=== PATIENT | female | born 1935 | race African-American/Black ===

== ENCOUNTER 2016-11-08 11:33 | Emergency (ER) | payer MEDICARE, OTHER ==
[~2016-11-08] VITALS: Ht 162.6 cm; Wt 76.2 kg
--- NOTE | ~2016-11-08 | EKG ---
[place] [address] [facility] [place] [address] ELECTROCARDIOGRAM REPORT Name: LEAHSUSAN Room #: DEP AUGUSTINA Jin#: [id number] Admission: 11/08/16 Attend Phys: Discharge: 11/08/16 Date of : 31 Report #: [id number] THIS REPORT FOR: //name// [facility] ED Test Date: 2016-11-08 Test Time: 12:00:14 Pat Name: SUSAN LYNN Department: Room: Gender: F Conservation Educator: Martir FRAIRE : 1935 Requested By: Yang Romo Order Number: [id number] MD: Manohar Harvey Measurements Intervals [place] Rate: 103 P: 38 CA: 197 QRS: 10 QRSD: 83 T: 81 QT: 366 QTc: 479 Interpretive Statements Sinus tachycardia Ventricular premature complex Left ventricular hypertrophy No previous ECG available for comparison Electronically Signed On 11-09-2016 8:28:02 CDT by Manohar Harvey [email or web address] <ELECTRONICALLY SIGNED> By: Manohar Harvey MD, [facility] 11/09/16 0828 1200 [facility] [place] Manohar Harvey MD, FACC /EPI
[~2016-11-08 11:33] MED LIST: ASPIR 8181 MG PO; CALCIUM 600 +1 EAC1 PO; CENTRUM SILVER1 EAC4 PO; CHLORTHALIDONE25 MG PO; CRESTOR10 MG PO; KLOR-CON 1010 MEQ PO; LEVEMIR SUBQ; NOVOLOG100 UNIT/M SUBQ; OMEPRAZOLE20 M1 PO; OXYCODONE-ACET1 EACH PO; PRINIVIL10 MG PO; TIZANIDINE HCL2 M1 PO; VITAMIN D-32000 UNIT PO; ZETIA10 MG PO; ZOLOFT25 MG PO; [UNRECOGNIZED DRUG - OTHER] TP
[2016-11-08 13:44] LABS: ABSOLUTE NEUTROPHILS 7.9 thou/uL (1.4-8.2); BASOPHILS 1.1 % (0.0-2.0); EOSINOPHILS 0.2 % (0.0-3.0); HEMOGLOBIN 14.6 gm/dL (12.0-15.0); LYMPHOCYTES 13.9 % (24.0-44.0); MCH 33.6 pg (26.0-34.0); MCHC 33.1 g/dL (28.0-37.0); MCV 101.4 fL (80.0-100.0); MONOCYTES 6.4 % (1.0-8.0); PLATELET COUNT 157 thou/uL (150-400); POLYS 78.4 % (36.0-66.0); RBC 4.34 mil/uL (4.20-5.00); RDW 13.8 % (10.5-14.5); WBC 10.1 thou/uL (4.0-11.0)
[2016-11-08 13:45] LABS: MANUAL DIFF NO
[2016-11-08 13:55] LABS: ANION GAP 7 mmol/L (7-16); BUN 18 mg/dL (7-18); CALCIUM 8.6 mg/dL (8.5-10.1); CHLORIDE 99 mmol/L (98-107); CO2 29 mmol/L (21-32); CREATININE 1.4 mg/dL (0.6-1.0); GLUCOSE 407 mg/dL (74-106); INR 1.1; POTASSIUM 4.3 mmol/L (3.5-5.1); PROTIME 10.9 Seconds (9.3-11.4); SODIUM 135 mmol/L (136-145)
[2016-11-08 14:02] LABS: ALBUMIN 3.2 g/dL (3.4-5.0); ALKALINE PHOSPHATASE 75 U/L (46-116); SGOT 13 U/L (15-37); SGPT 25 U/L (30-65); TOTAL BILIRUBIN 0.7 mg/dL (<0.1-1.0); TOTAL PROTEIN 6.9 g/dL (6.4-8.2); TROPONIN-I < 0.04 ng/mL (<0.04-0.07)
[2016-11-08 17:52] VITALS: BP 132/68
== END 2016-11-08 18:16 | disposition home or self-care (01) ==
LOC: ER 11:33
PROVIDERS: Physician Assistant
DX: E11.65 Type 2 diabetes mellitus with hyperglycemia (principal); G89.29 Other chronic pain; Z88.8 Allergy status to other drugs, medicaments and biological substances; Z87.891 Personal history of nicotine dependence

== ENCOUNTER 2016-11-28 11:58 | Emergency (ER) | payer MEDICARE, OTHER ==
[~2016-11-28] VITALS: Ht 162.6 cm; Wt 78.5 kg
[2016-11-28 12:52] LABS: ABSOLUTE NEUTROPHILS 5.5 thou/uL (1.4-8.2); BASOPHILS 0.5 % (0.0-2.0); EOSINOPHILS 1.9 % (0.0-3.0); HEMATOCRIT 38.1 % (37.0-47.0); HEMOGLOBIN 12.7 gm/dL (12.0-15.0); LYMPHOCYTES 18.5 % (24.0-44.0); MCH 33.8 pg (26.0-34.0); MCHC 33.3 g/dL (28.0-37.0); MCV 101.7 fL (80.0-100.0); PLATELET COUNT 152 thou/uL (150-400); POLYS 72.1 % (36.0-66.0); RBC 3.75 mil/uL (4.20-5.00); RDW 14.3 % (10.5-14.5); WBC 7.6 thou/uL (4.0-11.0)
[2016-11-28 12:53] LABS: MANUAL DIFF NO
[2016-11-28] MEDS ORDERED: PREDNISONE 5 MG5 M1 PO (13:34)
[2016-11-28] MEDS ORDERED: FOLIC ACID1 MG PO (13:34)
[2016-11-28] MEDS ORDERED: METHOTREXATE 22.5 MG PO (13:35)
[2016-11-28 13:38] LABS: CALCIUM 8.4 mg/dL (8.5-10.1); POTASSIUM 3.9 mmol/L (3.5-5.1)
[2016-11-28 14:19] VITALS: BP 162/67
== END 2016-11-28 14:27 | disposition home or self-care (01) ==
LOC: ER 11:58
PROVIDERS: Emergency Medicine
DX: G25.2 Other specified forms of tremor (principal); E11.9 Type 2 diabetes mellitus without complications; Z79.4 Long term (current) use of insulin; G89.29 Other chronic pain; Z88.8 Allergy status to other drugs, medicaments and biological substances; F17.210 Nicotine dependence, cigarettes, uncomplicated; F10.99 Alcohol use, unspecified with unspecified alcohol-induced disorder

== ENCOUNTER 2016-12-03 07:51 | Emergency (ER) | payer MEDICARE, OTHER ==
[~2016-12-03] VITALS: Ht 162.6 cm; Wt 77.1 kg
[~2016-12-03 07:51] MED LIST changes: +FOLIC ACID1 MG PO; +METHOTREXATE 22.5 MG PO; +PREDNISONE 5 MG5 M1 PO
[2016-12-03 08:37] LABS: ABSOLUTE NEUTROPHILS 4.9 thou/uL (1.4-8.2); BASOPHILS 0.5 % (0.0-2.0); EOSINOPHILS 2.1 % (0.0-3.0); HEMATOCRIT 41.6 % (37.0-47.0); HEMOGLOBIN 13.8 gm/dL (12.0-15.0); LYMPHOCYTES 20.4 % (24.0-44.0); MCHC 33.2 g/dL (28.0-37.0); MCV 102.3 fL (80.0-100.0); MONOCYTES 6.7 % (1.0-8.0); PLATELET COUNT 167 thou/uL (150-400); POLYS 70.3 % (36.0-66.0); RBC 4.07 mil/uL (4.20-5.00); RDW 14.3 % (10.5-14.5)
[2016-12-03 08:38] LABS: MANUAL DIFF NO
[2016-12-03 08:39] LABS: CALCIUM 9.2 mg/dL (8.5-10.1)
[2016-12-03 10:23] VITALS: BP 169/84
== END 2016-12-03 10:26 | disposition home or self-care (01) ==
LOC: ER 07:51
PROVIDERS: Emergency Medicine
DX: E11.65 Type 2 diabetes mellitus with hyperglycemia (principal); G89.29 Other chronic pain; Z88.8 Allergy status to other drugs, medicaments and biological substances; F17.210 Nicotine dependence, cigarettes, uncomplicated; F10.99 Alcohol use, unspecified with unspecified alcohol-induced disorder; Z79.4 Long term (current) use of insulin

== ENCOUNTER 2017-01-05 03:31 | Inpatient (IN) | payer MEDICARE, OTHER ==
[~2017-01-05] VITALS: Ht 165.1 cm; Wt 76.2 kg
--- NOTE | ~2017-01-05 | EKG ---
[address] [place] [address] ELECTROCARDIOGRAM REPORT Name: SUSAN LYNN Room #: 303-P ADM IN M.R.#: [id number] Admission: 01/05/17 Attend Phys: Demarco Montiel MD Discharge: Date of : 31 Report #: [id number] THIS REPORT FOR: //name// [facility] ED Test Date: 2017-01-05 Test Time: 03:42:49 Pat Name: SUSAN LYNN Department: Room: 303 Gender: F Data Developer: [id number] : 1935 Requested By: Cait Sharp Order Number: [id number] MD: Manohar Harvey Measurements Intervals [place] Rate: 58 P: 3 MI: 199 QRS: 13 QRSD: 83 T: 51 QT: 447 QTc: 440 Interpretive Statements Sinus rhythm Consider left ventricular hypertrophy Compared to ECG 11/08/2016 12:00:14 Sinus tachycardia no longer present Ventricular premature complex(es) no longer present Electronically Signed On 01-05-2017 8:42:59 CDT by Manohar Harvey [email or web address] <ELECTRONICALLY SIGNED> By: Manohar Harvey MD, [facility] 01/05/17 [id number] [id number] Manohar Harvey MD, [facility] /EPI
--- NOTE | ~2017-01-05 | CATHLAB ---
[facility] [place] [address] INVASIVE PROCEDURE REPORT Name: LEAHSUSAN Room #: 303-P [facility] IN .R.#: [id number] Admission: 01/05/17 Attend Phys: Demarco Montiel, Discharge: 01/06/17 Date of : 31 Date of Service: 01/06/17 1319 Report #: [id number] THIS REPORT FOR: //name// CC: Nixon Montiel DATE OF SERVICE: 01/06/2017 INDICATIONS: Unstable angina, abnormal nuclear stress test. Full risks, benefits, and alternatives of cardiac catheterization were explained to the patient. All questions were answered. Informed consent was obtained. The right groin area was prepped and draped in a sterile manner. Lidocaine was given subcutaneously. A 4-Amharic sheath was inserted into the right femoral artery via a modified Seldinger technique. CORONARY ANATOMY: The left main artery is a large caliber vessel, with no flow-limiting lesions. The LAD is a moderate to large sized caliber vessel, travelling down the anterior wall and wrapping around the apex. There is only mild plaquing in the proximal LAD, less than 20%. The first diagonal artery is a small caliber vessel, with a mild stenosis at the ostium, 30%. The left circumflex artery has mild plaquing in the proximal segment, 20%. There are 2 obtuse marginal arteries, with no flow-limiting lesions. The first obtuse marginal artery is the larger of the 2, supplying several branches as it travels down the lateral wall. The RCA is a dominant vessel, supplying a PDA and posterolateral branch. There were no flow limiting lesions in the RCA A left ventriculogram was performed revealing normal LV systolic function, ejection fraction of 55-60%. The LVEDP is approximately 21 mmHg. There was no gradient across the outflow tract. IMPRESSION: 1. Mild, nonobstructive coronary artery disease. 2. Normal left ventricular systolic function. 3. Recommend medical therapy. <ELECTRONICALLY SIGNED> By: Chau Wolf MD 01/07/17 0800 1319 1800 Chau Wolf MD /nt
--- NOTE | ~2017-01-05 | 2DMMODE ---
[facility] [address] [facility] [place] [address] 2 D/M-MODE ECHOCARDIOGRAM Name: SUSAN LYNN Room #: 303-P [facility] IN ..#: [id number] Admission: 01/05/17 Attend Phys: Demarco Montiel, Discharge: Date of : 31 Date of Service: 01/05/17 1547 Report #: [id number] THIS REPORT FOR: //name// APPROVED REPORT Study performed: 01/05/2017 14:05:50 EXAM: Comprehensive 2D, Doppler, and color-flow Echocardiogram Patient Location: Echo lab Room #: 303 Status: routine Other Information Study Quality: Good Indications Chest Pressure 2D Dimensions RVDd: 43.89 mm LVEF(%): 72.56 (>50%) IVSd: 13.46 (7-11mm) LVOT Diam: 20.08 (18-24mm) LVDd: 45.67 mm PWd: 11.48 (7-11mm) Ascending Ao: 29.58 (22-36mm) LVDs: 26.69 (25-40mm) Aortic Root: 30.27 mm Crowder's LVEF: 72.56 % Volumes Left Atrial Volume (Systole) Single Plane 4CH: 47.23 mL Single Plane 2CH: 47.15 mL LA ESV Index: 28.00 mL/m2 Aortic Valve AoV Peak Johnny.: 2.50 m/s AO Peak Gr.: 25.01 mmHg LVOT Max P.48 mmHg AO Mean Gr.: 12.35 mmHg AO V2 Mean: 1.64 m/s LVOT Max V: 0.93 m/s AO V2 VTI: 58.25 cm GRIFFIN Vmax: 1.17 cm2 Mitral Valve E/A Ratio: 1.1 MV Decel. Time: 212.75 ms MV E Max Johnny.: 1.09 m/s MV A Johnny.: 0.99 m/s [facility] [place] [address] 2 D/M-MODE ECHOCARDIOGRAM Name: LEAHSUSAN Room #: 303-P [facility] IN .R.#: [id number] Admission: 01/05/17 Attend Phys: Demarco Montiel, Discharge: Date of : 31 Date of Service: 01/05/17 1547 Report #: [id number] PHT: 61.70 ms IVRT: 87.66 ms Pulmonary Valve PV Peak Johnny.: 0.88 m/s PV Peak Gr.: 3.09 mmHg Pulmonary Vein P Vein S: 0.65 m/s P Vein A: 0.32 m/s P Vein D: 0.46 m/s P Vein A Dur.: 124.6 msec P Vein S/D Ratio: 1.41 Tricuspid Valve TR Peak Johnny.: 2.06 m/s RAP Estimate: 5.00 mmHg TR Peak Gr.: 16.98 mmHg PA Pressure: 22.00 mmHg Left Ventricle The left ventricle is normal size. There is normal LV segmental wall motion. Mild concentric left ventricular hypertrophy. The left ventricular systolic function is normal. The left ventricular ejection fraction is within the normal range. LVEF is 60%. Grade II - pseudonormal filling dynamics. Right Ventricle The right ventricle is normal size. The right ventricular systolic function is normal. Atria Left atrium is mildly dilated. The right atrium size is normal. Aortic Valve Aortic valve is moderately calcified. Trace aortic regurgitation. There is mild to moderate valvular aortic stenosis. Maximum pressure gradient of 25 mmHg and mean pressure gradient of 12 mmHg. Mitral Valve Mitral valve leaflets are thickened and calcified. Moderate mitral annular calcification. Trace mitral regurgitation. No evidence of mitral valve stenosis. Tricuspid Valve The tricuspid valve is normal in structure. Trace tricuspid [place]urgitation[place] [address] 2 D/M-MODE ECHOCARDIOGRAM Name: SUSAN LYNN Room #: 303-P [facility] IN ..#: [id number] Admission: 01/05/17 Attend Phys: Demarco Montiel, Discharge: Date of : 31 Date of Service: 01/05/17 1547 Report #: [id number] The pulmonary valve is normal in structure. Trace pulmonic regurgitation. Great Vessels The aortic root is normal in size. The ascending aorta is normal in size. IVC is normal in size and collapses >50% with inspiration. Pericardium There is no pericardial effusion. <Conclusion> The left ventricle is normal size. Mild concentric left ventricular hypertrophy. The left ventricular systolic function is normal. The right ventricle is normal size. Left atrium is mildly dilated. Aortic valve is moderately calcified. There is mild to moderate valvular aortic stenosis. Maximum pressure gradient of 25 mmHg and mean pressure gradient of 12 mmHg. Mitral valve leaflets are thickened and calcified. Moderate mitral annular calcification. Trace mitral regurgitation. <ELECTRONICALLY SIGNED> By: Chau Wolf MD 01/05/17 1547 1547 1547 Chau Wolf MD /INF
[2017-01-05 03:35] VITALS: BP 197/92
[2017-01-05 04:08] LABS: ABSOLUTE NEUTROPHILS 4.9 thou/uL (1.4-8.2); BASOPHILS 0.8 % (0.0-2.0); EOSINOPHILS 1.8 % (0.0-3.0); HEMATOCRIT 38.1 % (37.0-47.0); HEMOGLOBIN 12.8 gm/dL (12.0-15.0); LYMPHOCYTES 23.8 % (24.0-44.0); MCHC 33.4 g/dL (28.0-37.0); MCV 101.8 fL (80.0-100.0); MONOCYTES 6.8 % (1.0-8.0); PLATELET COUNT 145 thou/uL (150-400); POLYS 66.8 % (36.0-66.0); RBC 3.75 mil/uL (4.20-5.00); RDW 13.6 % (10.5-14.5); WBC 7.4 thou/uL (4.0-11.0)
[2017-01-05 04:09] LABS: MANUAL DIFF NO
[2017-01-05 04:13] LABS: ANION GAP 9 mmol/L (7-16); BUN 18 mg/dL (7-18); CALCIUM 8.8 mg/dL (8.5-10.1); CHLORIDE 108 mmol/L (98-107); CO2 28 mmol/L (21-32); GLUCOSE 245 mg/dL (74-106); POTASSIUM 3.7 mmol/L (3.5-5.1); SODIUM 145 mmol/L (136-145)
[2017-01-05 04:22] LABS: TROPONIN-I < 0.04 ng/mL (<0.04-0.07)
[2017-01-05] MEDS ORDERED: PROTONIX40 M1 PO (04:48)
[2017-01-05] MEDS ORDERED: ZETIA10 MG PO (04:49)
[2017-01-05] MEDS ORDERED: MAGOX 400400 MG PO (04:52)
[2017-01-05] MEDS ORDERED: ONDANSETRON HCL4 M2 (04:53)
[2017-01-05 05:03] LABS: LARGE PLATELETS OCCASIONAL
[2017-01-05 06:57] VITALS: BP 180/105
[2017-01-05 08:42] LABS: CHOLESTEROL 144 mg/dL (<200); HDL CHOLESTEROL 56 mg/dL (>40); LDL CHOLESTEROL 73 mg/dL (<100); TC:HDL 2.6 Ratio (Not establshd); TRIGLYCERIDE 78 mg/dL (<150); VLDL 16 mg/dL (<40)
[2017-01-05 08:50] VITALS: BP 198/80
[2017-01-05 16:22] VITALS: BP 191/81
[2017-01-05 19:40] VITALS: BP 183/78
[2017-01-06] VITALS (9 sets, daily range): BP systolic 137–186; BP diastolic 69–93
[2017-01-06 07:49] LABS: HEMATOCRIT 44.2 % (37.0-47.0); MCHC 33.4 g/dL (28.0-37.0); MCV 101.6 fL (80.0-100.0); RBC 4.35 mil/uL (4.20-5.00); RDW 13.6 % (10.5-14.5); WBC 7.1 thou/uL (4.0-11.0)
[2017-01-06 07:53] LABS: HEMOGLOBIN 14.8 gm/dL (12.0-15.0)
[2017-01-06 08:05] LABS: CALCIUM 9.5 mg/dL (8.5-10.1); POTASSIUM 3.5 mmol/L (3.5-5.1)
== END 2017-01-06 17:38 | disposition home or self-care (01) | DRG 287 ==
LOC: ER 03:31 → 3N 05:44 → EROBS 05:44 → 3N 07:17
PROVIDERS: Emergency Medicine; Internal Medicine; Nurse Practitioner Adult Health
DX: I25.10 Atherosclerotic heart disease of native coronary artery without angina pectoris (principal); I10 Essential (primary) hypertension; E78.5 Hyperlipidemia, unspecified; E11.9 Type 2 diabetes mellitus without complications; G89.29 Other chronic pain; M54.9 Dorsalgia, unspecified; E78.00 Pure hypercholesterolemia, unspecified; F32.9 Major depressive disorder, single episode, unspecified; K21.9 Gastro-esophageal reflux disease without esophagitis; D69.6 Thrombocytopenia, unspecified; Z88.8 Allergy status to other drugs, medicaments and biological substances; Z87.891 Personal history of nicotine dependence; Z86.010 Personal history of colon polyps; Z98.891 History of uterine scar from previous surgery; Z79.4 Long term (current) use of insulin; Z79.82 Long term (current) use of aspirin; Z79.899 Other long term (current) drug therapy; Z82.3 Family history of stroke; Z80.8 Family history of malignant neoplasm of other organs or systems; Z82.49 Family history of ischemic heart disease and other diseases of the circulatory system
CPT/HCPCS: 10096